=== PATIENT | male | born 1980 | race African-American/Black ===

== ENCOUNTER 2017-07-31 06:43 | Emergency (ER) | payer MEDICAID, OTHER ==
[2017-07-31] MEDS ORDERED: NS 0.9% 1000 ML* 1,000 ML IV ONE ×2 (07:25→09:32)
[2017-07-31 07:56] LABS: ABS Basophils 0 10^3/ul (0-0.2); ABS Eosinophils 0.1 10^3/ul (0-0.6); ABS Monocytes 0.4 10^3/ul (0-0.8); ABS Nucleated RBC 0 10^3/ul; Eosinophil % 0.8 % (0-6); Hematocrit 46 % (42-52); Hemoglobin 15.4 g/dl (14.0-18.0); Lymphocyte % 15.3 % (25-47); Mean Corpuscular HGB Conc 33 g/dl (31-36); Mean Corpuscular Hemoglobin 29 pg (27-31); Mean Corpuscular Volume 87 fL (80-94); Mean Platelet Volume 10 um3 (7.4-10.4); Nucleated Red Blood Cells % 0.1; Platelet Count 176 10^3/ul (150-450); Red Blood Count 5.33 10^6/ul (4.0-5.4); Red Cell Distribution Width 14 % (10.5-15); White Blood Count 6.5 10^3/ul (3.5-10.8)
[2017-07-31 08:08] LABS: EGFR Non-African American 89.2 (>60)
--- NOTE | 2017-07-31 08:18 | RAD ---
INDICATION: Diffuse abdominal pain. Nausea and vomiting. Polyuria. COMPARISON: No relevant prior exams available on [place] [facility] [facility] [place]. TECHNIQUE: Multidetector CT images were obtained from the lung bases to the ischial tuberosities. Evaluation of the viscera is limited without IV contrast. Multiplanar reformation. REPORT: Unremarkable visualized inferior thorax. 20 cm cephalocaudal enlarged liver is decreased in density consistent with fatty infiltration. No conspicuous focal hepatic lesions or biliary dilatation. No CT abnormality of the gallbladder. Unremarkable pancreas and spleen with small splenule at the splenic hilum. No CT abnormality of the upper GI, small bowel, or retrocecal appendix. Mild diverticulosis of the sigmoid colon without findings of diverticulitis. Negative for ascites, free air, hernias. Normal adrenal glands. Negative for urolithiasis or hydronephrosis. No focal renal lesions or perinephric inflammatory stranding. No CT abnormality of the nondilated ureters or largely decompressed urinary bladder. Unremarkable visualized male urogenital structures. Negative for lymphadenopathy. Normal diameter abdominal aorta and iliac arteries. Physiologic distention of the IVC. Negative for suspicious osseous lesions. IMPRESSION: 1. Hepatomegaly with hepatosteatosis. 2. Normal appendix documented. Mild colonic diverticulosis without findings of diverticulitis. No acute pathologic process of the alimentary tract evident. 3. Negative for obstructive uropathy.
[2017-07-31] MEDS ORDERED: Insulin REGULAR(*) 1 UNITS UNIT IV PUSH ONE (09:32)
[2017-07-31 10:46] LABS: Urine Appearance Clear; Urine Blood Negative (Negative); Urine Color Yellow; Urine Ketones 1+ (Negative); Urine Protein Negative (Negative); Urine Specific Gravity 1.024 (1.010-1.030); Urine Urobilinogen Negative (Negative)
[2017-07-31 10:54] VITALS: BP 127/92
[2017-07-31] MEDS ORDERED: Acetaminophen TAB* 325 MG PO ONE (10:56)
--- NOTE | 2017-08-01 07:54 | ED ---
Vasiliy Bedoya Angela, scribed for Myron Gregorio MD on 07/31/17 at 0733 . Abdominal Pain/Male - HPI Summary HPI Summary: This pt is a 36 y/o male presenting to [facility] c/o diffuse abd pain since last night. Pt reports his abd pain began after he came back from work at approximately 23:00 last night. He states his pain lasted throughout the night. Pt rates his pain 6/10 in severity. He notes that this morning at around 06:00 he had 1 episode of vomiting. Pt additionally states he has been tired, has had urinary frequency, and has had dry mouth lately. Pt denies diarrhea. PMHx: asthma - History of Current Complaint Chief Complaint: EDAbdPain Stated Complaint: ABD PAIN Time Seen by Provider: 07/31/17 07:11 Hx Obtained From: Patient Onset/Duration: Lasting Hours, Still Present Timing: Lasting Hours Severity Currently: Moderate Pain Intensity: 6 Pain Scale Used: 0-10 Numeric Location: Diffuse Radiates: No Aggravating Factor(s): Nothing Alleviating Factor(s): Nothing Associated Signs And Symptoms: Positive: Urinary Symptoms - urinary frequency, Nausea, Vomiting, Other - POS: dry mouth. Negative: Diarrhea - Allergies/Home Medications Allergies/Adverse Reactions: Allergies Allergy/AdvReac Type Severity Reaction Status Date / Time Fish Allergy Allergy Severe Difficulty Verified 07/31/17 08:19 Breathing Hydrocodone Allergy Itching Verified 07/31/17 08:19 ricotta cheese Allergy Severe Itching Uncoded 07/31/17 08:19 PMH/Surg Hx/FS Hx/Imm Hx Endocrine/Hematology History: Denies: Hx Diabetes, Hx Thyroid Disease Cardiovascular History: Denies: Hx Hypertension, Hx Pacemaker/ICD Respiratory History: Reports: Hx Asthma Denies: Hx Chronic Obstructive Pulmonary Disease (COPD) GI History: Denies: Hx Ulcer Sensory History: Denies: Hx Hearing Aid Psychiatric History: Denies: Hx Panic Disorder - Surgical History Surgery Procedure, Year, and Place: left knee reconstruction/ACL Infectious Disease History: No Infectious Disease History: Denies: Hx Hepatitis, Hx Human Immunodeficiency Virus (HIV), Traveled Outside the [place] in Last 30 Days - Family History Known Family History: Positive: Hypertension - Mother, Diabetes - Mother - Social History Alcohol Use: Occasionally Substance Use Type: Reports: Marijuana Smoking Status (MU): Smoker, Current Status Unknown Review of Systems Negative: Fever, Chills ENT: Other - dry mouth Positive: Abdominal Pain, Vomiting, Nausea. Negative: Diarrhea Positive: frequency - urinary Skin: Negative Neurological: Negative All Other Systems Reviewed And Are Negative: Yes Physical Exam - Summary Physical Exam Summary: VITAL SIGNS: Reviewed. GENERAL: Patient is a well-developed and nourished male who is lying comfortable in the stretcher. Patient is not in any acute respiratory distress. HEAD AND FACE: Normocephalic and atraumatic. EYES: PERRLA, EOMI x 2, No injected conjunctiva. EARS: Hearing grossly intact. Ear canals and tympanic membranes are WNL. MOUTH: Oropharynx within normal limits. NECK: Supple, trachea is midline, no adenopathy, no JVD. CHEST: Symmetric, no tenderness at palpation LUNGS: Clear to auscultation bilaterally. No wheezing or crackles. CVS: RRR, S1 and S2 present, no murmurs or gallops appreciated. ABDOMEN: Soft, non-tender. No signs of distention. Positive bowel sounds. No rebound no guarding, and no masses palpated. No abdominal bruit or pulsations. EXTREMITIES: FROM in all major joints, no edema, no cyanosis or clubbing. NEURO: Alert and oriented x 3. No acute neurological deficits. Speech is normal. SKIN: Dry and warm Triage Information Reviewed: Yes Vital Signs On Initial Exam: Initial Vitals Temp Pulse Resp BP Pulse Ox 97.6 F 98 18 148/94 98 07/31/17 06:45 07/31/17 06:45 07/31/17 06:45 07/31/17 06:45 07/31/17 06:45 Vital Signs Reviewed: Yes Diagnostics - Vital Signs Vital Signs Temp Pulse Resp BP Pulse Ox 07/31/17 06:45 97.6 F 98 18 148/94 98 - Laboratory Lab Results: Lab Results 07/31/17 07/31/17 07/31/17 Range/Units 07:40 07:40 07:40 WBC 6.5 (3.5-10.8) 10^3/ul RBC 5.33 (4.0-5.4) 10^6/ul Hgb 15.4 (14.0-18.0) g/dl Hct 46 (42-52) % MCV 87 (80-94) fL MCH 29 (27-31) pg MCHC 33 (31-36) g/dl RDW 14 (10.5-15) % Plt Count 176 (150-450) 10^3/ul MPV 10 (7.4-10.4) um3 Neut % (Auto) 77.5 (38-83) % Lymph % (Auto) 15.3 L (25-47) % [place] % (Auto) 6.0 (1-9) % Eos % (Auto) 0.8 (0-6) % Baso % (Auto) 0.4 (0-2) % Absolute Neuts (auto) 5.0 (1.5-7.7) 10^3/ul Absolute Lymphs (auto) 1.0 (1.0-4.8) 10^3/ul Absolute Monos (auto) 0.4 (0-0.8) 10^3/ul Absolute Eos (auto) 0.1 (0-0.6) 10^3/ul Absolute Basos (auto) 0 (0-0.2) 10^3/ul Absolute Nucleated RBC 0 10^3/ul Nucleated RBC % 0.1 Sodium 130 L (133-145) mmol/L Potassium 4.5 (3.5-5.0) mmol/L Chloride 97 L (101-111) mmol/L Carbon Dioxide 27 (22-32) mmol/L Anion Gap 6 (2-11) mmol/L BUN 10 (6-24) mg/dL Creatinine 0.95 (0.67-1.17) mg/dL Est GFR ( Amer) 114.7 (>60) Est GFR (Non-Af Amer) 89.2 (>60) BUN/Creatinine Ratio 10.5 (8-20) Glucose 270 H (70-100) mg/dL Calcium 9.4 (8.6-10.3) mg/dL Total Bilirubin 1.10 H (0.2-1.0) mg/dL AST 50 H (13-39) U/L ALT 52 (7-52) U/L Alkaline Phosphatase 112 H (34-104) U/L Total Creatine Kinase 205 (10-223) U/L Troponin I 0.00 (<0.04) ng/mL C-Reactive Protein 14.00 H (< 5.00) mg/L B-Natriuretic Peptide 22 ( - 100) pg/mL Total Protein 8.1 (6.4-8.9) g/dL Albumin 4.5 (3.2-5.2) g/dL Globulin 3.6 (2-4) g/dL Albumin/Globulin Ratio 1.3 (1-3) Amylase 28 L (29-103) U/L Lipase 13 (11.0-82.0) U/L Urine Color Urine Appearance Urine pH (5-9) Ur Specific [place] (1.010-1.030) Urine Protein (Negative) Urine Ketones (Negative) Urine Blood (Negative) Urine Nitrate (Negative) Urine Bilirubin (Negative) Urine Urobilinogen (Negative) Ur Leukocyte Esterase (Negative) Urine Glucose (Negative) Influenza A (Rapid) (Negative) Influenza B (Rapid) (Negative) 07/31/17 07/31/17 Range/Units 10:15 11:22 WBC (3.5-10.8) 10^3/ul RBC (4.0-5.4) 10^6/ul Hgb (14.0-18.0) g/dl Hct (42-52) % MCV (80-94) fL MCH (27-31) pg MCHC (31-36) g/dl RDW (10.5-15) % Plt Count (150-450) 10^3/ul MPV (7.4-10.4) um3 Neut % (Auto) (38-83) % Lymph % (Auto) (25-47) % [place] % (Auto) (1-9) % Eos % (Auto) (0-6) % Baso % (Auto) (0-2) % Absolute Neuts (auto) (1.5-7.7) 10^3/ul Absolute Lymphs (auto) (1.0-4.8) 10^3/ul Absolute Monos (auto) (0-0.8) 10^3/ul Absolute Eos (auto) (0-0.6) 10^3/ul Absolute Basos (auto) (0-0.2) 10^3/ul Absolute Nucleated RBC 10^3/ul Nucleated RBC % Sodium (133-145) mmol/L Potassium (3.5-5.0) mmol/L Chloride (101-111) mmol/L Carbon Dioxide (22-32) mmol/L Anion Gap (2-11) mmol/L BUN (6-24) mg/dL Creatinine (0.67-1.17) mg/dL Est GFR ( Amer) (>60) Est GFR (Non-Af Amer) (>60) BUN/Creatinine Ratio (8-20) Glucose (70-100) mg/dL Calcium (8.6-10.3) mg/dL Total Bilirubin (0.2-1.0) mg/dL AST (13-39) U/L ALT (7-52) U/L Alkaline Phosphatase (34-104) U/L Total Creatine Kinase (10-223) U/L Troponin I (<0.04) ng/mL C-Reactive Protein (< 5.00) mg/L B-Natriuretic Peptide ( - 100) pg/mL Total Protein (6.4-8.9) g/dL Albumin (3.2-5.2) g/dL Globulin (2-4) g/dL Albumin/Globulin Ratio (1-3) Amylase (29-103) U/L Lipase (11.0-82.0) U/L Urine Color Yellow Urine Appearance Clear Urine pH 5.0 (5-9) Ur Specific [place] 1.024 (1.010-1.030) Urine Protein Negative (Negative) Urine Ketones 1+ H (Negative) Urine Blood Negative (Negative) Urine Nitrate Negative (Negative) Urine Bilirubin Negative (Negative) Urine Urobilinogen Negative (Negative) Ur Leukocyte Esterase Negative (Negative) Urine Glucose 3+(>=500 mg/dl) H (Negative) Influenza A (Rapid) Negative (Negative) Influenza B (Rapid) Negative (Negative) Result Diagrams: 07/31/17 07:40 07/31/17 07:40 Lab Statement: Any lab studies that have been ordered have been reviewed, and results considered in the medical decision making process. - CT Abdomen/Pelvis CT CT Interpretation: Positive (See Comments) - IMPRESSION: 1. Hepatomegaly with hepatosteatosis. 2. Normal appendix documented. Mild colonic diverticulosis without findings of diverticulitis. No acute pahtologic process of the alimentary tract evident. 3. Negative for obstructive uropathy. Dr. Gregorio has reviewed this radiology report. CT Interpretation Completed By: Radiologist - EKG 07:56 Cardiac Rate: NL EKG Rhythm: Sinus Rhythm - at 92 bpm EKG Interpretation: No ST elevation. Normal axis. Abdominal Pain Fem Course/Dx - Course Course Of Treatment: This pt is a 36 y/o male [facility] c/o diffuse abd pain since last night. Pt reports his abd pain began after he came back from work at approximately 23:00 last night. He states his pain lasted throughout the night. Pt rates his pain 6/10 in severity. He notes that this morning at around 06:00 he had 1 episode of vomiting. Pt additionally states he has been tired, has had urinary frequency, and has had dry mouth lately. Pt denies diarrhea. PMHx: asthma. Test results without any significant abnormalities except for glucose of 270, CRP of 14. Urinalysis shows positive glucose. Rapid strep is negative. Abdomen/pelvis CT shows 1. Hepatomegaly with hepatosteatosis. 2. Normal appendix documented. Mild colonic diverticulosis without findings of diverticulitis. No acute pahtologic process of the alimentary tract evident. 3. Negative for obstructive uropathy. In the ED course, the pt was given IV fluids, insulin for his new onset of diabetes, and his symptoms improved. He developed a fever but it seems to be viral. Pt was given Tylenol and his symptoms improved. He will be discharged home with a prescription for metformin and with follow up from his PCP this week. Pt is hemodynamically stable, alert and oriented x3. Therefore he will be discharged home with follow up from his PCP. - Diagnoses Differential Diagnosis/HQI/PQRI: Appendicitis, Bowel Obstruction, Constipation, Diverticulitis, Renal Colic Provider Diagnoses: Hyperglycemia, Diabetes mellitus, new onset Discharge - Discharge Plan Condition: Stable Disposition: HOME Prescriptions: metFORMIN* [Glucophage 500 MG TAB *] 500 mg PO BID #20 tab Patient Education Materials: Type 2 Diabetes in Adults (ED), Nondiabetic Hyperglycemia (ED) Referrals: John Akers MD [Primary Care Provider] - As Soon As Possible Additional Instructions: Please follow up with your primary care provider as soon as possible. RETURN TO THE ED FOR ANY WORSENING SYMPTOMS. The documentation as recorded by the Vasiliy pan Angela accurately reflects the service I personally performed and the decisions made by , Myron Gregorio MD.
== END 2017-07-31 11:01 | disposition home or self-care (01) ==
LOC: ED 06:43
DX: E11.65 Type 2 diabetes mellitus with hyperglycemia (principal); R11.2 Nausea with vomiting, unspecified; R10.9 Unspecified abdominal pain; Z72.0 Tobacco use
CPT/HCPCS: 36415; 74176; 80053; 81003; 82150; 82550; 83690; 83880; 84484; 85025; 86140; 87502; 93005; 99283

== ENCOUNTER 2017-08-09 12:39 | Emergency (ER) | payer MEDICAID, OTHER ==
[2017-08-09 15:57] LABS: ABS Basophils 0.1 10^3/ul (0-0.2); ABS Eosinophils 0.3 10^3/ul (0-0.6); ABS Lymphocytes 3.5 10^3/ul (1.0-4.8); ABS Monocytes 0.4 10^3/ul (0-0.8); ABS Neutrophils 2.4 10^3/ul (1.5-7.7); ABS Nucleated RBC 0 10^3/ul; Eosinophil % 5.2 % (0-6); Hematocrit 42 % (42-52); Hemoglobin 13.7 g/dl (14.0-18.0); Lymphocyte % 52.5 % (25-47); Mean Corpuscular HGB Conc 33 g/dl (31-36); Mean Corpuscular Hemoglobin 28 pg (27-31); Mean Corpuscular Volume 87 fL (80-94); Mean Platelet Volume 9 um3 (7.4-10.4); Nucleated Red Blood Cells % 0.3; Platelet Count 218 10^3/ul (150-450); Red Blood Count 4.82 10^6/ul (4.0-5.4); Red Cell Distribution Width 14 % (10.5-15); White Blood Count 6.7 10^3/ul (3.5-10.8)
[2017-08-09 16:11] LABS: EGFR Non-African American 92.6 (>60)
[2017-08-09 17:43] VITALS: BP 124/82
--- NOTE | 2017-08-10 12:11 | ED ---
Khang Bedoya Jennifer, scribed for Jewel Davis MD on 08/09/17 at 1508 . Headache - HPI Summary HPI Summary: The patient is a 36 year old male who presents to the ED with frontal headaches that began three days ago. The patient describes that he [place] [facility] [place] because of high blood sugar levels, where he was diagnosed with diabetes. The patients blood pressure was high this morning, so he decided to come back to the ED. He took two pills of Tylenol at 11:00 and currently denies any headaches in the ED. - History Of Current Complaint Chief Complaint: EDHeadache Stated Complaint: HEADACE Time Seen by Provider: 08/09/17 14:38 Hx Obtained From: Patient Onset/Duration: Started days ago - about 3, Still Present - Comes and goes Initially Headache Was: Mild Currently Pain Is: Mild Location of Headache: Frontal Aggravating Factor: Nothing Allevating Factors: Nothing - Allergies/Home Medications Allergies/Adverse Reactions: Allergies Allergy/AdvReac Type Severity Reaction Status Date / Time MS Fish Allergy Allergy Severe Difficulty Verified 07/31/17 08:19 [Fish Allergy] Breathing MS Hydrocodone [Hydrocodone] Allergy Itching Verified 07/31/17 08:19 ricotta cheese Allergy Severe Itching Uncoded 07/31/17 08:19 PMH/Surg Hx/FS Hx/Imm Hx Endocrine/Hematology History: Reports: Hx Diabetes Denies: Hx Thyroid Disease Cardiovascular History: Denies: Hx Hypertension, Hx Pacemaker/ICD Respiratory History: Reports: Hx Asthma Denies: Hx Chronic Obstructive Pulmonary Disease (COPD) GI History: Denies: Hx Ulcer Sensory History: Denies: Hx Hearing Aid Psychiatric History: Denies: Hx Panic Disorder - Surgical History Surgery Procedure, Year, and Place: left knee reconstruction/ACL Infectious Disease History: No Infectious Disease History: Denies: Hx Hepatitis, Hx Human Immunodeficiency Virus (HIV), Traveled Outside the [place] in Last 30 Days - Family History Known Family History: Positive: Hypertension - Mother, Diabetes - Mother - Social History Alcohol Use: Occasionally Substance Use Type: Reports: Marijuana Smoking Status (MU): Current Some Day Smoker - Has about 2-3 cigarettes a day but trying to wean off Review of Systems Negative: Fever Positive: Headache All Other Systems Reviewed And Are Negative: Yes Physical Exam - Summary Physical Exam Summary: Appearance: The patient is well-nourished in no acute distress and in no acute pain. Skin: The skin is warm and dry and skin color reflects adequate perfusion. HEENT: ~The head is normocephalic and atraumatic. The pupils are equal and reactive. The conjunctivae are clear and without drainage. ~Nares are patent and without drainage. ~Mouth reveals moist mucous membranes and the throat is without erythema and exudate. ~The external ears are intact. The ear canals are patent and without drainage. The tympanic membranes are intact. Neck: the neck is supple with full range of motion and non-tender. There are no carotid bruits. ~There is no neck vein distension. Respiratory: Chest is non-tender. ~Lungs are clear to auscultation and breath sounds are symmetrical and equal. Cardiovascular: Heart is regular rate and rhythm. ~There is no murmur or rub auscultated. ~~There is no peripheral edema and pulses are symmetrical and equal. Abdomen: The abdomen is soft and non-tender. ~There are normal bowel sounds heard in all four quadrants and there is no organomegaly palpated. Musculoskeletal: There is no back tenderness noted. ~Extremities are non-tender with full range of motion. ~There is good capillary refill. ~There is no peripheral edema or calf tenderness elicited. Neurological: Patient is alert and oriented to person, place and time. ~The patient has symmetrical motor strength in all four extremities. ~Cranial nerves are grossly intact. Deep tendon reflexes are symmetrical and equal in all four extremities. Psychiatric: The patient has an appropriate affect and does not exhibit any anxiety or depression. Triage Information Reviewed: Yes Vital Signs On Initial Exam: Initial Vitals Temp Pulse Resp BP Pulse Ox 98.5 F 79 18 159/91 97 08/09/17 12:44 08/09/17 12:44 08/09/17 12:44 08/09/17 12:44 08/09/17 12:44 Vital Signs Reviewed: Yes Diagnostics - Vital Signs Vital Signs Temp Pulse Resp BP Pulse Ox 08/09/17 14:33 80 99 08/09/17 14:32 148/86 08/09/17 12:44 98.5 F 79 18 159/91 97 - Laboratory Lab Results: Lab Results 08/09/17 08/09/17 Range/Units 15:50 15:50 WBC 6.7 (3.5-10.8) 10^3/ul RBC 4.82 (4.0-5.4) 10^6/ul Hgb 13.7 L (14.0-18.0) g/dl Hct 42 (42-52) % MCV 87 (80-94) fL MCH 28 (27-31) pg MCHC 33 (31-36) g/dl RDW 14 (10.5-15) % Plt Count 218 (150-450) 10^3/ul MPV 9 (7.4-10.4) um3 Neut % (Auto) 36.1 L (38-83) % Lymph % (Auto) 52.5 H (25-47) % [place] % (Auto) 5.3 (1-9) % Eos % (Auto) 5.2 (0-6) % Baso % (Auto) 0.9 (0-2) % Absolute Neuts (auto) 2.4 (1.5-7.7) 10^3/ul Absolute Lymphs (auto) 3.5 (1.0-4.8) 10^3/ul Absolute Monos (auto) 0.4 (0-0.8) 10^3/ul Absolute Eos (auto) 0.3 (0-0.6) 10^3/ul Absolute Basos (auto) 0.1 (0-0.2) 10^3/ul Absolute Nucleated RBC 0 10^3/ul Nucleated RBC % 0.3 Sodium 135 (133-145) mmol/L Potassium 4.0 (3.5-5.0) mmol/L Chloride 104 (101-111) mmol/L Carbon Dioxide 25 (22-32) mmol/L Anion Gap 6 (2-11) mmol/L BUN 10 (6-24) mg/dL Creatinine 0.92 (0.67-1.17) mg/dL Est GFR ( Amer) 119.1 (>60) Est GFR (Non-Af Amer) 92.6 (>60) BUN/Creatinine Ratio 10.9 (8-20) Glucose 114 H (70-100) mg/dL Calcium 8.8 (8.6-10.3) mg/dL Total Bilirubin 0.90 (0.2-1.0) mg/dL AST 38 (13-39) U/L ALT 48 (7-52) U/L Alkaline Phosphatase 67 (34-104) U/L Troponin I 0.00 (<0.04) ng/mL Total Protein 7.2 (6.4-8.9) g/dL Albumin 3.9 (3.2-5.2) g/dL Globulin 3.3 (2-4) g/dL Albumin/Globulin Ratio 1.2 (1-3) Result Diagrams: 08/09/17 15:50 08/09/17 15:50 Lab Statement: Any lab studies that have been ordered have been reviewed, and results considered in the medical decision making process. - EKG 15:55 Cardiac Rate: NL EKG Rhythm: Sinus Rhythm - 69 BPM EKG Interpretation: Non-specific inferior changes, normal variant Headache Course/Dx - Course Course Of Treatment: Mr. Carlin has had some intermittent frontal QUINONEZ's and he checked his BP and found the diastolic to be above 100 so he came in. He felt fine by the time he got here and his BP generally ran high but not urgent. His W/U was WNL and I recommended close F/U with his PMD. - Diagnoses Provider Diagnoses: Hypertension Discharge - Discharge Plan Condition: Stable Disposition: HOME Patient Education Materials: Hypertension (ED) Referrals: Osei Estes NP [Primary Care Provider] - 7 Days Additional Instructions: Follow up with your primary care physician in seven days. Return to the emergency department for any new or worsening symptoms. The documentation as recorded by the Khang pan Jennifer accurately reflects the service I personally performed and the decisions made by me, Jewel Davis MD.
== END 2017-08-09 17:44 | disposition home or self-care (01) ==
LOC: ED 12:39
DX: I10 Essential (primary) hypertension (principal); F17.210 Nicotine dependence, cigarettes, uncomplicated; Z88.5 Allergy status to narcotic agent
CPT/HCPCS: 36415; 80053; 84484; 85025; 93005; 99282

== ENCOUNTER 2017-10-08 09:27 | Emergency (ER) | payer OTHER ==
[2017-10-08] MEDS ORDERED: Aspirin 81 mg CHEW TAB* 81 MG TAB.CHEW PO ONE (09:52)
--- NOTE | 2017-10-08 09:58 | ED ---
HPI Chest Pain - HPI Summary HPI Summary: Newly diagnosed type 2 diabetic patient here with lower sternal chest pain 2 days. This pain radiates to the right under her breast and seems to be worse with movement such as upper torso rotation, lifting his young daughter. Sometimes better w/ slouching forward as opposed to leaning/stretching back. He noted this pain started shortly after stretching his upper extremities and chest 2 days ago. Denies associated symptoms of shortness of breath, nausea, sweating, vomiting, pain into jaw/upper extremity and does not have worsening of pain with exertion. He also specifically denies any tearing sensations or pain radiating into his back. He did sleep more than usual yesterday though and not sure why he was so tired. Admits he was not aware of his diabetes until recently and feels energy has improved since changing nutrition and taking metformin. His chest pain is not reproducible w/ palpation. He currently reports pain is 4 out of 10 - has not tried anything for this yet and does not take ASA routinely. Denies recent illness and no personal or family history of aneurysm of which he is aware. He is an occasional/some days out of the week smoker, drinks alcohol couple times a month and smokes marijuana occasionally. Denies cocaine or other stimulant use throughout his life. He works shift supervisor film processing at [employer] where he does engage in some laborous activities such as cleaning - no acute injuries to recall. Family history of mom with heart attack in her 50s - she is also a diabetic. NOTE: pt also has asthma and uses albuterol BID. He has not had his dose yet this morning. Denies SOB, wheezing but breathing feels a little tight at the moment. - History of Current Complaint Chief Complaint: EDChestPainROMI Time Seen by Provider: 10/08/17 09:33 Hx Obtained From: Patient Pain Intensity: 5 - Allergy/Home Medications Allergies/Adverse Reactions: Allergies Allergy/AdvReac Type Severity Reaction Status Date / Time Fish Containing Products Allergy Difficulty Verified 10/08/17 09:50 Breathing hydrocodone Allergy Itching Verified 10/08/17 09:50 ricotta cheese Allergy Severe Itching Uncoded 07/31/17 08:19 Home Medications: Home Medications metFORMIN* [Glucophage 500 MG TAB *] 1,000 mg PO BID 10/08/17 [History Confirmed 10/08/17] PMH/Surg Hx/FS Hx/Imm Hx Previously Healthy: Yes Endocrine/Hematology History: Reports: Hx Diabetes - HGA1C 13+% Denies: Hx Anticoagulant Therapy, Hx Blood Disorders, Hx Thyroid Disease, Autoimmune Disease Cardiovascular History: Denies: Hx Hypertension, Hx Pacemaker/ICD Respiratory History: Reports: Hx Asthma - uses albuterol daily Denies: Hx Chronic Obstructive Pulmonary Disease (COPD) GI History: Denies: Hx Gastroesophageal Reflux Disease, Hx Gastrointestinal Bleed, Hx Hiatal Hernia, Hx Ulcer Musculoskeletal History: Denies: Hx Arthritis, Hx Back Problems Sensory History: Denies: Hx Hearing Aid Psychiatric History: Denies: Hx Panic Disorder - Surgical History Surgery Procedure, Year, and Place: left knee reconstruction/ACL Infectious Disease History: No Infectious Disease History: Denies: Hx Hepatitis, Hx Human Immunodeficiency Virus (HIV), Traveled Outside the [place] in Last 30 Days - Family History Known Family History: Positive: Cardiac Disease - [place] -mom in 50's, Hypertension - Mother, Diabetes - Mother - Social History Occupation: Employed Full-time - works nights at [employer] Lives: With Family Alcohol Use: Occasionally - few times a month Hx Substance Use: Yes Substance Use Type: Reports: Marijuana. Denies: Cocaine, Excessive Caffeine Hx Tobacco Use: Yes Smoking Status (MU): Current Some Day Smoker Review of Systems Positive: Fatigue - yesterday - okay today. Negative: Fever, Chills Eyes: Negative ENT: Negative Positive: Chest Pain. Negative: Palpitations Respiratory: Other - asthma sx of chest tightness subtly present Negative: Shortness Of Breath, Cough Gastrointestinal: Negative Positive: no symptoms reported Musculoskeletal: Other - Rt side chest pain Skin: Negative Neurological: Negative Psychological: Normal All Other Systems Reviewed And Are Negative: Yes Physical Exam Triage Information Reviewed: Yes Vital Signs On Initial Exam: Initial Vitals Temp Pulse Resp BP Pulse Ox 98.2 F 78 18 135/85 98 10/08/17 09:29 10/08/17 09:29 10/08/17 09:29 10/08/17 09:29 10/08/17 09:29 Vital Signs Reviewed: Yes Appearance: Positive: Well-Appearing - smells like cologne, No Pain Distress, Obese Skin: Positive: Warm, Skin Color Reflects Adequate Perfusion, Dry Head/Face: Positive: Normal Head/Face Inspection Eyes: Positive: Normal, EOMI, Conjunctiva Clear ENT: Positive: Normal ENT inspection, Hearing grossly normal, Pharynx normal - mucosa moist Neck: Positive: Supple, Nontender Respiratory/Lung Sounds: Positive: Clear to Auscultation, Breath Sounds Present. Negative: Rales, Rhonchi, Wheezes Cardiovascular: Positive: Normal, RRR, Pulses are Symmetrical in both Upper and Lower Extremities, S1, S2. Negative: Murmur, Rub, Leg Edema Left, Leg Edema Right Abdomen Description: Positive: Nontender, No Organomegaly, Soft Bowel Sounds: Positive: Present Musculoskeletal: Positive: Normal, Strength/ROM Intact, Pain @ - sternum and Rt chest are NTTP - FROM cervical spine and UE's - HSA PAIN W/ CERVICAL FLEXION IN AREA OF CHEST PAIN Neurological: Positive: Normal, Sensory/Motor Intact, Alert, Oriented to Person Place, Time, CN Intact II-III Psychiatric: Positive: Normal Diagnostics - Vital Signs Vital Signs Temp Pulse Resp BP Pulse Ox 10/08/17 09:29 98.2 F 78 18 135/85 98 - Laboratory Result Diagrams: 10/08/17 09:52 10/08/17 09:52 Lab Statement: Any lab studies that have been ordered have been reviewed, and results considered in the medical decision making process. Re-Evaluation - Re-Evaluation First Eval Change: Improved - chest tightness improved w/ albuterol HFA 2 PUFFS (USED HIS OWN); sternal and Rt CP improved w/ ASA 324mg Chest Pain Course/Dx - Diagnoses Provider Diagnoses: Mid sternal chest pain Discharge - Sign-Out/Discharge Documenting (check all that apply): Discharge - Discharge Plan Condition: Stable Disposition: HOME Patient Education Materials: Chest Wall Pain (ED) Referrals: Osei Estes WELLNESS TRAINER [Primary Care Provider] - Additional Instructions: Follow-up with PCP later this week if pain persists or does not improve w/ recommendations made today. *If you develop worsening of chest pain, shortness of breath, fever, bloody cough, back pain, increased heart rate, palpitations, sweating, nausea/vomiting , arm or jaw pain, numbness or tingling, return to the emergency department - Billing Disposition and Condition Condition: STABLE Disposition: HOME
[2017-10-08 10:08] LABS: INR 0.91 (0.77-1.02)
[2017-10-08 10:12] LABS: ABS Basophils 0.1 10^3/ul (0-0.2); ABS Eosinophils 0.3 10^3/ul (0-0.6); ABS Lymphocytes 3.3 10^3/ul (1.0-4.8); ABS Monocytes 0.3 10^3/ul (0-0.8); ABS Neutrophils 2.7 10^3/ul (1.5-7.7); ABS Nucleated RBC 0 10^3/ul; Eosinophil % 4.3 % (0-6); Hematocrit 42 % (42-52); Hemoglobin 13.8 g/dl (14.0-18.0); Lymphocyte % 49.2 % (25-47); Mean Corpuscular HGB Conc 33 g/dl (31-36); Mean Corpuscular Hemoglobin 29 pg (27-31); Mean Corpuscular Volume 87 fL (80-94); Nucleated Red Blood Cells % 0.2; Platelet Count 221 10^3/ul (150-450); Red Cell Distribution Width 14 % (10.5-15); White Blood Count 6.8 10^3/ul (3.5-10.8)
[2017-10-08 10:15] LABS: EGFR Non-African American 85.6 (>60)
[2017-10-08] MEDS ORDERED: Albuterol HFA INHALER* 8 gm MDI INH ONE (10:48)
--- NOTE | 2017-10-08 11:23 | RAD ---
HISTORY: Chest pain COMPARISONS: March 16, 2009 VIEWS: 1: frontal portable view of the chest at 11:06 AM FINDINGS: LINES AND TUBES: None. CARDIOMEDIASTINAL SILHOUETTE: The cardiomediastinal silhouette is stable. PLEURA: The costophrenic angles are sharp. No pleural abnormalities are noted. LUNG PARENCHYMA: The lungs are clear. ABDOMEN: The upper abdomen is clear. There is no subphrenic gas. BONES AND SOFT TISSUES: No bone or soft tissue abnormalities are noted. IMPRESSION: NO ACTIVE CARDIOPULMONARY DISEASE.
[2017-10-08 12:04] VITALS: BP 130/86
== END 2017-10-08 12:04 | disposition home or self-care (01) ==
LOC: ED 09:27
DX: R07.2 Precordial pain (principal); R53.83 Other fatigue; E11.9 Type 2 diabetes mellitus without complications; Z79.84 Long term (current) use of oral hypoglycemic drugs; J45.909 Unspecified asthma, uncomplicated; Z88.5 Allergy status to narcotic agent; Z72.0 Tobacco use
CPT/HCPCS: 36415; 71045; 80053; 83605; 83735; 84443; 84484; 85025; 85610; 93005; 99282; A9270-GY